=== PATIENT | female | born 1955 | race Caucasian/White ===

== ENCOUNTER 2017-03-30 16:06 | Emergency (ER) | payer BC, OTHER ==
[~2017-03-30] VITALS: Ht 162.6 cm; Wt 70.8 kg
[~2017-03-30 16:06] MED LIST: GAS-80CH CHEW; PRIL20TA2 PO; PRIN5TAB PO
[2017-03-30 16:23] VITALS: BP 104/73; PULSE 110; RESP 15; TEMP 99.3; O2SAT 100
[2017-03-30] MEDS ORDERED: SODIUM CHLOR 0.9% 1000 ML INJ 1,000 ML IV ONE (18:00)
[2017-03-30] MEDS ORDERED: ONDANSETRON HCL 4 MG/2 ML VIAL IV PUSH ONE (18:00)
[2017-03-30] MEDS ORDERED: PANT20 PO (18:19)
[2017-03-30 18:21] VITALS: BP 128/66; PULSE 96; RESP 16; O2SAT 97
[2017-03-30 18:26] LABS: AUTOMATED NEUTROPHIL # 8.5 TH/MM3 (1.8-7.7); BASOPHIL # 0.1 TH/MM3 (0-0.2); BASOPHIL % 0.8 % (0.0-2.0); EOSINOPHIL % 0.2 % (0.0-4.0); HEMATOCRIT 41.1 % (35.0-46.0); LYMPH % 4.7 % (9.0-44.0); LYMPHOCYTE # 0.4 TH/MM3 (1.0-4.8); MEAN CELL VOLUME 91.2 FL (80.0-100.0); MEAN CORPUSCULAR HEMOGLOBIN 30.1 PG (27.0-34.0); MONO % 5.8 % (0.0-8.0); NEUT % 88.5 % (16.0-70.0); PLATELET COUNT 160 TH/MM3 (150-450); RED CELL DISTRIBUTION WIDTH 12.8 % (11.6-17.2); WHITE BLOOD COUNT 9.5 TH/MM3 (4.0-11.0)
[2017-03-30 18:32] LABS: HEMO FLAGS DIFF FINAL
[2017-03-30 18:34] LABS: CHLORIDE 93 MEQ/L (98-107); POTASSIUM 3.2 MEQ/L (3.5-5.1); SODIUM (NA) 130 MEQ/L (136-145)
[2017-03-30 18:39] LABS: ANION GAP 9 MEQ/L (5-15); BICARBONATE 27.9 MEQ/L (21.0-32.0); BLOOD UREA NITROGEN 15 MG/DL (7-18)
[2017-03-30 18:42] LABS: ALT (GPT) 22 U/L (10-53); AST (GOT) 20 U/L (15-37); GLOMERULAR FILTRATION RATE 50 ML/MIN (>89)
[2017-03-30 18:44] LABS: TOTAL BILIRUBIN ADULT 0.6 MG/DL (0.2-1.0)
[2017-03-30 18:45] LABS: ALKALINE PHOSPHATASE 60 U/L (45-117)
[2017-03-30 19:10] VITALS: BP 119/60; PULSE 96; RESP 18; O2SAT 98
[2017-03-30] MEDS ORDERED: POTASSIUM CHLORIDE 20 MEQ CONTROLLED RELEASE TAB PO ONE (19:30)
[2017-03-30] MEDS ORDERED: ZOFR4TAB3 SL (20:05)
--- NOTE | 2017-03-30 20:05 | PD ---
HPI Chief Complaint: GI Complaint Time Seen by Provider: 17:48 Travel History International Travel<30 days: No Contact w/Intl Traveler<30days: No Traveled to known affect area: No History of Present Illness HPI Patient is a 61-year-old female who comes in complaining of diarrhea for a week and a half. She went to see her scallop dredger, Dr. Bailey, who advised she come get IV fluids. She was prescribed Flagyl by Dr. Bailey today. She has not started the antibiotic yet. She denies any recent travel. She denies any recent antibiotic use. [place] She denies any sick contacts. She says that yesterday she had a fever of 101.6. She reports having some abdominal cramping, but is not really having any pain currently. She's had some nausea and one episode of vomiting several days ago. She denies any other symptoms such as cough, cold, shortness of breath. PFSH Past Medical History Diminished Hearing: No Gastrointestinal Disorders: Yes (GASTRITIS) GERD: Yes Hypertension: Yes (RECENT DX FOR HIGH DIASTOLIC >90) Influenza Vaccination: Yes ?: Not Menopausal: Yes Past Surgical History Tonsillectomy: Yes Social History Alcohol Use: Yes (WINE OCCASIONALLY1-2 TIMES A WEEK) Tobacco Use: No Substance Use: No Allergies-Medications (Allergen,Severity, Reaction): Coded Allergies: Cipro (Verified Allergy, Severe, 03/30/17) Penicillin (Verified Allergy, Severe, 03/30/17) Reported Meds & Prescriptions Reported Meds & Active Scripts Active Ciprofloxacin (Ciprofloxacin HCl) 500 Mg Tab 500 Mg PO BID 7 Days Zofran Odt (Ondansetron Odt) 4 Mg Tab 4 Mg SL Q6HR PRN Reported Protonix (Pantoprazole Sodium) 20 Mg Tab 20 Mg PO DAILY Review of Systems Except as stated in HPI: all other systems reviewed are Neg General / Constitutional: Positive: Fever Eyes: No: Blurred Vision HENT: No: Headaches, Lightheadedness Cardiovascular: No: Chest Pain or Discomfort Respiratory: No: Cough, Shortness of Breath Gastrointestinal: Positive: Nausea, Diarrhea, No: Abdominal Pain Genitourinary: No: Dysuria Skin: No Rash, No Itching Neurologic: No: Weakness, Dizziness Physical Exam Narrative GENERAL: Awake and alert, in no acute distress. SKIN: Focused skin assessment warm/dry. HEAD: Atraumatic. Normocephalic. EYES: Pupils equal and round. No scleral icterus. ENT: Mucous membranes pink and moist. NECK: Trachea midline. No JVD. CARDIOVASCULAR: Regular rate and rhythm. No murmur appreciated. RESPIRATORY: No accessory muscle use. Clear to auscultation. Breath sounds equal bilaterally. GASTROINTESTINAL: Abdomen soft, non-tender, nondistended. No CVA tenderness. MUSCULOSKELETAL: No obvious deformities. No clubbing. No cyanosis. No edema. NEUROLOGICAL: Awake and alert. No obvious cranial nerve deficits. Motor grossly within normal limits. Normal speech. PSYCHIATRIC: Appropriate mood and affect; insight and judgment normal. Data Data Last Documented VS Vital Signs Date Time Temp Pulse Resp B/P Pulse Ox O2 Delivery O2 Flow Rate FiO2 03/30/17 19:10 96 18 119/60 98 Room Air 03/30/17 16:23 99.3 Orders Complete Blood Count With Diff (03/30/17 17:56) Comprehensive Metabolic Panel (03/30/17 17:56) Urinalysis - C+S If Indicated (03/30/17 17:56) Stool Wbc (Leukocytes) (03/30/17 17:56) Stool Ova And Parasite Screen (03/30/17 17:56) Sodium Chlor 0.9% 1000 Ml Inj (Ns 1000 M (03/30/17 18:00) Ondansetron Inj (Zofran Inj) (03/30/17 18:00) C Diff Toxin Pcr (03/30/17 17:56) Potassium Chloride (Kcl) (03/30/17 19:30) Urine Culture (03/30/17 19:56) Labs Laboratory Tests Test 03/30/17 03/30/17 18:10 19:56 White Blood Count 9.5 TH/MM3 Red Blood Count 4.50 MIL/MM3 Hemoglobin 13.6 GM/DL Hematocrit 41.1 % Mean Corpuscular Volume 91.2 FL Mean Corpuscular Hemoglobin 30.1 PG Mean Corpuscular Hemoglobin 33.0 % Concent Red Cell Distribution Width 12.8 % Platelet Count 160 TH/MM3 Mean Platelet Volume 7.7 FL Neutrophils (%) (Auto) 88.5 % Lymphocytes (%) (Auto) 4.7 % Monocytes (%) (Auto) 5.8 % Eosinophils (%) (Auto) 0.2 % Basophils (%) (Auto) 0.8 % Neutrophils # (Auto) 8.5 TH/MM3 Lymphocytes # (Auto) 0.4 TH/MM3 Monocytes # (Auto) 0.5 TH/MM3 Eosinophils # (Auto) 0.0 TH/MM3 Basophils # (Auto) 0.1 TH/MM3 CBC Comment DIFF FINAL Differential Comment Sodium Level 130 MEQ/L Potassium Level 3.2 MEQ/L Chloride Level 93 MEQ/L Carbon Dioxide Level 27.9 MEQ/L Anion Gap 9 MEQ/L Blood Urea Nitrogen 15 MG/DL Creatinine 1.10 MG/DL Estimat Glomerular Filtration 50 ML/MIN Rate Random Glucose 129 MG/DL Calcium Level 8.9 MG/DL Total Bilirubin 0.6 MG/DL Aspartate Amino Transf 20 U/L (AST/SGOT) Alanine Aminotransferase 22 U/L (ALT/SGPT) Alkaline Phosphatase 60 U/L Total Protein 7.4 GM/DL Albumin 3.3 GM/DL Urine Color YELLOW Urine Turbidity CLEAR Urine pH 6.0 Urine Specific [place] 1.014 Urine Protein TRACE mg/dL Urine Glucose (UA) NEG mg/dL Urine Ketones 15 mg/dL Urine Occult Blood MOD Urine Nitrite NEG Urine Bilirubin NEG Urine Leukocyte Esterase SMALL Urine RBC 4-9 /hpf Urine WBC 9-14 /hpf Urine Squamous Epithelial 0-5 /hpf Cells Urine Bacteria OCC /hpf Microscopic Urinalysis Comment CULTURE INDICATED MDM Medical Decision Making Medical Screen Exam Complete: Yes Emergency Medical Condition: Yes Medical Record Reviewed: Yes Differential Diagnosis Viral diarrhea versus infectious diarrhea versus colitis versus diverticulitis Narrative Course Patient is a 61-year-old female who comes in complaining of diarrhea for a week and a half. Exam shows abdomen to be soft and nontender. IV established, labs sent. Potassium is 3.2, sodium is 130. White blood cell count is within normal limits. Potassium replaced with oral replacement. Patient given IV fluids. She was afebrile here. When she came in her pulse was 110, it improved to 93 after fluids. Patient advised to take her Flagyl as prescribed. Advised to follow-up with her scallop dredger. Advised to return to the ED at any time for any worsening symptoms. Advised to drink plenty of fluids. Given a prescription for Zofran. Patient and her are comfortable with this plan at this time. Diagnosis Primary Impression: Diarrhea Qualified Code: R19.7 - Diarrhea, unspecified type Patient Instructions: Acute Diarrhea (ED), General Instructions Additional Instructions: Drink plenty of fluids. Take all of your antibiotic. Follow up with Dr. Bailey. Return to the ED as needed for any worsening symptoms. Scripts Sulfamethoxazole-Trimethoprim (Bactrim DS)800-160 Mg Tab1 Tab PO BID #14 TAB Ref 0 Prov:Birdie Martinez MD 03/30/17 Ondansetron Odt (Zofran Odt)4 Mg Tab4 Mg SL Q6HR PRN (Nausea/Vomiting) #10 TAB Ref 0 Prov:Birdie Martinez MD 03/30/17 Disposition: 01 DISCHARGE HOME Condition: Stable Birdie Martinez MD March 30, 2017 20:05
[2017-03-30 20:10] VITALS: BP 111/69; PULSE 89; RESP 18; O2SAT 97
[2017-03-30 20:13] LABS: GLUCOSE,URINE NEG (NEG); KETONE, URINE 15 mg/dL (NEG); NITRITE,URINE NEG (NEG)
[2017-03-30 20:15] LABS: BLOOD, URINE MOD (NEG); URINE COLOR YELLOW (YELLW/STRAW)
[2017-03-30 20:17] LABS: BACTERIA, URINE OCC /hpf; SQUAMOUS EPITHELIAL CELL URINE 0-5 /hpf (0-5)
[2017-03-30 20:18] LABS: COMMENT (UR) CULTURE INDICATED; CULTURE IF INDICATED CULTURE INDICATED
[2017-03-30] MEDS ORDERED: CIPR500T2 PO (20:19)
[2017-03-30] MEDS ORDERED: BACT800T5 PO (20:23)
[2017-03-30 20:39] VITALS: BP 114/61
== END 2017-03-30 20:49 | disposition home or self-care (01) ==
LOC: PHED 16:06
DX: R19.7 Diarrhea, unspecified (principal); R11.0 Nausea; K21.9 Gastro-esophageal reflux disease without esophagitis; I10 Essential (primary) hypertension; Z79.899 Other long term (current) drug therapy; Z88.0 Allergy status to penicillin
CPT/HCPCS: 80053; 81001; 85025; 87086; 87205; 87328; 87329; 96361; 96374; 99284; J2405; J7030